=== PATIENT | male | born 1940 | race Caucasian/White ===

== ENCOUNTER → 2017-10-21 | Outpatient (CLI) | payer OTHER ==
--- NOTE | 2017-10-21 10:47 | CT ---
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 History of prostate cancer per pat ient. CT DLP: 2119.1 mGycm Automated exposure control for dose reduction was used. CONTRAST: CT scan of the head is performed without and with IV Contrast, patient injected with 100 mL of Isovue 300. FINDINGS: Noncontrast images show no acute intracranial hemorrhage or midline shift. There is ventricular and s ulcal prominence consistent with diffuse cerebral atrophy with areas of low attenuation left frontal lobe consistent with old infarct axial image 27 is noted. Additional old infarct inferior medial righ t occipital lobe axial image 21 is present. Post contrast images show no suspicious enhancing intrapa renchymal mass. There is however hyperdense partially calcified extra-axial lesion in the right anter ior posterior fossa measuring roughly 2.8 x 1.3 cm axial image 14 x 2.2 cm transverse diameter hayes l image 44 likely reflecting ossified meningioma. Local mass effect is present. There is near complet e opacification of right posterior ethmoid sinus with air-fluid level. Remainder paranasal sinuses ar e clear. The globes are intact bilaterally. 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
== END | disposition home or self-care (01) ==
LOC: RADCTMAIN 08:16
DX: G31.9 Degenerative disease of nervous system, unspecified (principal); D32.0 Benign neoplasm of cerebral meninges
CPT/HCPCS: 82565; 84520; 70470; 36415; Q9967